=== PATIENT | male | born 1950 | race Caucasian/White ===

== ENCOUNTER 2017-12-30 22:53 | Emergency (ER) | payer OTHER ==
[~2017-12-30] VITALS: Ht 182.9 cm; Wt 84.8 kg
[~2017-12-30 22:53] MED LIST: IBUPROFEN800 MG PO; LIDODERM30 EA TP; ORPH100T PO
[2017-12-30] MEDS ORDERED: COZAAR100 MG (23:09)
[2017-12-30] MEDS ORDERED: AMLOD-VALSA-HC1 EAC1 (23:10)
[2017-12-30] MEDS ORDERED: GLUCOPHAGE XR750 MG (23:10)
[2017-12-30] MEDS ORDERED: SIMVASTATIN40 MG (23:11)
== END 2017-12-31 02:30 | disposition home or self-care (01) ==
LOC: ER 22:53
DX: H53.8 Other visual disturbances (principal)

== ENCOUNTER 2023-04-30 18:12 | Emergency (ER) | payer OTHER ==
[~2023-04-30] VITALS: Ht 182.9 cm; Wt 80.3 kg
[~2023-04-30 18:12] MED LIST changes: +AMLOD-VALSA-HC1 EAC1; +COZAAR100 MG; +GLUCOPHAGE XR750 MG; +SIMVASTATIN40 MG
[2023-04-30] MEDS ORDERED: AMLODIPINE BESYL5 MG PO (18:51)
== END 2023-04-30 21:25 | disposition home or self-care (01) ==
LOC: ER 18:12
DX: M54.89 Other dorsalgia (principal); I10 Essential (primary) hypertension